=== PATIENT | female | born 1955 | race Caucasian/White ===

== ENCOUNTER 2018-01-28 12:57 | Outpatient (CLI) | payer OTHER | END 2018-01-28 12:58 | disposition home or self-care (01) | LOC: LAB 12:57 | PROVIDERS: ATTEND Internal Medicine Rheumatology | DX: M35.3 Polymyalgia rheumatica (principal) | CPT/HCPCS: 36415; 85651; 86140 ==

== ENCOUNTER 2021-04-02 08:00 | Outpatient (CLI) | payer OTHER | END 2021-04-02 23:59 | LOC: LAB.S 08:00 | PROVIDERS: ATTEND Physician Assistant | DX: U07.1 COVID-19 (principal) ==

== ENCOUNTER 2022-03-05 09:48 | Outpatient (CLI) | payer OTHER, MEDICARE ==
[2022-03-05 10:09] LABS: BASOPHILS # (AUTO) 0.1 10^3/uL (0.0-0.1); BASOPHILS % (AUTO) 1.1 %; EOSINOPHILS # (AUTO) 0.2 10^3/uL (0.0-0.7); HCT - HEMATOCRIT 38.2 % (37.0-47.0); HGB - HEMOGLOBIN 12.1 g/dL (12.0-16.0); LYMPHOCYTES # (AUTO) 2.1 10^3/uL (1.5-3.5); LYMPHOCYTES % (AUTO) 39.8 %; MEAN CORPUSCULAR HEMOGLOBIN 29.3 pg (27.0-31.0); MEAN CORPUSCULAR HGB CONC 31.7 g/dL (32.0-36.0); MEAN CORPUSCULAR VOLUME 92.5 fL (81.0-99.0); MEAN PLATELET VOLUME 9.3 fL (7.9-10.8); MONOCYTES # (AUTO) 0.3 10^3/uL (0.0-1.0); MONOCYTES % (AUTO) 5.6 %; NEUTROPHILS # (AUTO) 2.6 10^3/uL (1.5-6.6); NEUTROPHILS % (AUTO) 49.3 %; PLT - PLATELET COUNT 264 10^3/uL (130-450); RED BLOOD COUNT 4.13 10^6/uL (4.20-5.40); RED CELL DISTRIBUTION WIDTH 13.4 % (12.0-15.0); WHITE BLOOD COUNT 5.2 x10^3/uL (4.8-10.8)
[2022-03-05 10:24] LABS: ALBUMIN 4.2 g/dL (3.2-5.5); ALBUMIN/GLOBULIN RATIO 1.6 (1.0-2.2); ALKALINE PHOSPHATASE 36 IU/L (42-121); ALT ALANINE AMINOTRANSFERASE 16 IU/L (10-60); AST ASPARTATE AMINOTRANSFERASE 18 IU/L (10-42); BILIRUBIN,TOTAL 0.7 mg/dL (0.2-1.0); BUN - BLOOD UREA NITROGEN 15 mg/dL (6-20); CALCIUM 9.2 mg/dL (8.5-10.3); CARBON DIOXIDE - CO2 27 mmol/L (21-32); CHLORIDE 102 mmol/L (101-111); CHOL/HDL RATIO 3.5 (<4.4); CHOLESTEROL 247 mg/dL; CREATININE 0.8 mg/dL (0.4-1.0); GFR - MDRD 72 (>89); GLUCOSE 102 mg/dL (70-100); HDL CHOLESTEROL 71 mg/dL; LDL CHOLESTEROL,CALCULATED 160 mg/dL; LDL/HDL RATIO 2.3 (<4.4); SODIUM 138 mmol/L (135-145); TOTAL PROTEIN 6.8 g/dL (6.7-8.2); TRIGLYCERIDES 80 mg/dL; VLDL CHOLESTEROL 16 mg/dL
[2022-03-05 10:36] LABS: THYROID STIMULATING HORMONE 5.11 uIU/mL (0.34-5.60)
[2022-03-05 11:50] LABS: ESTIMATED AVERAGE GLUCOSE 120 mg/dL (70-100); HEMOGLOBIN A1c% 5.8 % (4.27-6.07)
== END 2022-03-05 09:49 | disposition home or self-care (01) ==
LOC: LAB 09:48
PROVIDERS: ATTEND Internal Medicine
DX: Z00.00 Encounter for general adult medical examination without abnormal findings (principal); E78.5 Hyperlipidemia, unspecified; R73.01 Impaired fasting glucose
CPT/HCPCS: 36415; 80053; 80061; 83036; 83721; 84443; 85025

== ENCOUNTER 2022-11-28 14:12 | Emergency (ER) | payer MEDICARE, OTHER ==
--- OUTSIDE RECORDS SUMMARY | 2022-11-28 14:45 | EXTERNAL MEDICAL SUMMARY RPT | Continuity of Care Document ---
Author Name Unknown Address [address] [place] [address] Phone Organization [facility] Address [address] [place] [address] Phone Care Team Providers Care Solderer Torch Name Role Phone Nurse, Fred [facility] Unavailable Unavailab le Medications date description facility 2022-09-04 00:00 fluocinolone acetonide oil [facility] [place] 2022-09-04 00:00 ciclopirox [facility] 2022-09-04 00:00 imiquimod [facility] 2022-09-04 00:00 imiquimod [facility] 2022-09-04 00:00 ciclopirox [facility] 2022-09-04 00:00 imiquimod [facility] 2022-09-04 00:00 fluocinolone acetonide oil [facility] 2022-09-04 00:00 ciclopirox [facility] [place] 2022-09-04 00:00 fluocinolone acetonide oil [facility] 2022-09-04 00:00 ciclopirox [facility] 2022-09-04 00:00 imiquimod [facility] 2022-09-04 00:00 fluocinolone acetonide oil [facility]
[2022-11-28] MEDS ORDERED: SODIUM CHLORIDE 0.9% 1,000 ML IV STA (15:41)
[2022-11-28] MEDS ORDERED: MECLIZINE 12.5 MG TABLET PO STA (15:41)
[2022-11-28] MEDS ORDERED: ONDANSETRON 4 MG/2 ML VIAL IVP STA (15:41)
[2022-11-28 15:56] LABS: BASOPHILS # (AUTO) 0.1 10^3/uL (0.0-0.1); EOSINOPHILS # (AUTO) 0.1 10^3/uL (0.0-0.7); HCT - HEMATOCRIT 40.6 % (37.0-47.0); HGB - HEMOGLOBIN 13.1 g/dL (12.0-16.0); MEAN CORPUSCULAR HEMOGLOBIN 29.5 pg (27.0-31.0); MEAN CORPUSCULAR HGB CONC 32.3 g/dL (32.0-36.0); MEAN CORPUSCULAR VOLUME 91.4 fL (81.0-99.0); MEAN PLATELET VOLUME 9.5 fL (7.9-10.8); MONOCYTES # (AUTO) 0.3 10^3/uL (0.0-1.0); MONOCYTES % (AUTO) 5.1 %; NEUTROPHILS # (AUTO) 3.6 10^3/uL (1.5-6.6); NEUTROPHILS % (AUTO) 58.7 %; PLT - PLATELET COUNT 290 10^3/uL (130-450); RED BLOOD COUNT 4.44 10^6/uL (4.20-5.40); RED CELL DISTRIBUTION WIDTH 13.1 % (12.0-15.0); WHITE BLOOD COUNT 6.1 x10^3/uL (4.8-10.8)
[2022-11-28 16:13] LABS: ALBUMIN 4.6 g/dL (3.2-5.5); ALBUMIN/GLOBULIN RATIO 1.7 (1.0-2.2); BILIRUBIN,TOTAL 0.7 mg/dL (0.2-1.0); CALCIUM 9.8 mg/dL (8.5-10.3); CREATININE 0.7 mg/dL (0.6-1.3); POTASSIUM 3.7 mmol/L (3.5-4.5); TOTAL PROTEIN 7.3 g/dL (6.4-8.9)
--- NOTE | 2022-11-28 17:25 | ED Physician Documentation ---
History of Present Illness - Stated complaint Stated Complaint: DIZZY/NAUSEA - Chief complaint Chief Complaint: Neuro - History obtained from History obtained from: Patient - Additonal information Additional information: Patient is a 67-year-old patient with a history of vertigo presenting for evaluation of vertigo that is been present for 4 days. She states just prior to this she had gone swimming and was shaking water out of her head vigorously. The next day she started with vertigo symptoms that appear to be worse when looking to the left. She denies any falls or head injury. She does not take a blood thinner. She has attempted the Perla maneuver at home but this has caused worsening vertigo and nausea so she is hesitant to try it again. Her symptoms have been improving. She is able to ambulate. Denies a history of hypertension, diabetes, stroke, hyperlipidemia. Review of Systems Constitutional: denies: Fever Cardiac: denies: Chest pain / pressure Respiratory: denies: Dyspnea GI: denies: Abdominal Pain : denies: Dysuria Neurologic: denies: Syncope, Headache PD PAST MEDICAL HISTORY - Present Medications Home Medications: Ambulatory Orders Medication Instructions Recorded Confirmed Meclizine HCl [Motion Sickness] 25 mg PO Q6H PRN #20 tablet 11/28/22 Ondansetron Odt [Zofran] 4 mg TL Q6H PRN #10 tablet 11/28/22 - Allergies Allergies/Adverse Reactions: Allergies Allergy/AdvReac Type Severity Reaction Status Date / Time amoxicillin AdvReac Rash Verified 11/28/22 14:28 PD ED PE NORMAL - General General: Alert and oriented X 3, No acute distress, Well developed/nourished - HEENT HEENT: Atraumatic, PERRL, EOMI, Moist mucous membranes, Pharynx benign - Neck Neck: Supple, no meningeal sign - Cardiac Cardiac: RRR, Strong equal pulses - Respiratory Respiratory: No respiratory distress, Clear bilaterally - Abdomen Abdomen: Soft, Non tender - Derm Derm: Warm and dry - Neuro Neuro: Alert and oriented X 3, hemmer chainstitch 2-12 intact, No motor deficit, No sensory deficit, Normal speech, Other (Normal finger to nose b/l; normal gait; +Moody Hallpike to Left) Results - Vitals Vitals: Vital Signs - 24 hr 11/28/22 11/28/22 11/28/22 14:22 15:35 16:19 Temperature 37.0 C Heart Rate 62 48 L Respiratory 16 15 Rate Blood Pressure 180/84 H 144/82 H O2 Saturation 100 97 11/28/22 17:36 Temperature Heart Rate 52 L Respiratory 15 Rate Blood Pressure 148/79 H O2 Saturation 99 Oxygen O2 Source Room air - Labs Labs: Laboratory Tests 11/28/22 11/28/22 15:53 15:53 WBC 6.1 RBC 4.44 Hgb 13.1 Hct 40.6 MCV 91.4 MCH 29.5 MCHC 32.3 RDW 13.1 Plt Count 290 MPV 9.5 Neut # (Auto) 3.6 Lymph # (Auto) 2.0 [place] # (Auto) 0.3 Eos # (Auto) 0.1 Baso # (Auto) 0.1 Absolute Nucleated RBC 0.00 Nucleated RBC % 0.0 Sodium 138 Potassium 3.7 Chloride 103 Carbon Dioxide 28 Anion Gap 7.0 BUN 13 Creatinine 0.7 Estimated GFR (MDRD) 83 L Glucose 104 Calcium 9.8 Total Bilirubin 0.7 AST 13 ALT 10 Alkaline Phosphatase 40 L Total Protein 7.3 Albumin 4.6 Globulin 2.7 Albumin/Globulin Ratio 1.7 PD Medical Decision Making - ED course Complexity details: reviewed results, re-evaluated patient, d/w patient ED course: Patient is a 67-year-old female with a history of vertigo presenting for evaluation of an episode of vertigo lasting 4 days today. She reports that her prior episode was brief and did not require other intervention. She has tried the Perla maneuver with some improvement but some symptoms have persisted. She has a positive Moody-Hallpike to the left. No other findings to suggest central cause. EKG reviewed which shows sinus bradycardia which patient appears to be symptomatic from. CBC, chemistries obtained and reviewed without significant findings. She is feeling better after meclizine, Zofran and IV fluids. Discussed continued supportive care as well as need for close follow-up. She is advised on concerning symptoms to return for. Departure - Departure Disposition: 01 Home, Self Care Clinical Impression: Peripheral vertigo Condition: Stable Instructions: ED Vertigo Unspecified Prescriptions: Meclizine HCl [Motion Sickness] 25 mg PO Q6H PRN #20 tablet PRN Reason: Dizziness Ondansetron Odt [Zofran] 4 mg TL Q6H PRN #10 tablet PRN Reason: Nausea / Vomiting Comments: You were evaluated for vertigo which I believe is related to an imbalance in the inner ear. I have sent medications to [facility] in [place] to help with your symptoms. You can continue with Perla maneuvers 3 times a day as needed. I would call your primary care provider on Wednesday for close follow-up. Return to the emergency department with any worsening symptoms. Forms: PCP List Discharge Date/Time: 11/28/22 17:37
[2022-11-28 17:44] VITALS: BP 148/79; O2SAT 99
== END 2022-11-28 17:37 | disposition home or self-care (01) ==
LOC: ED 14:12
DX: H81.399 Other peripheral vertigo, unspecified ear (principal)
CPT/HCPCS: 36415; 80053; 85025; 93005; 96374; 99283; 99284; A9270

== ENCOUNTER 2023-03-17 09:20 | Outpatient (CLI) | payer MEDICARE, OTHER ==
--- NOTE | 2023-03-17 17:40 | XRAY Report ---
PROCEDURE: Hand 2 View BILAT INDICATIONS: DEGENERATIVE JOINT DISEASE OF BILATERAL HANDS TECHNIQUE: 3 views of the hand(s) acquired. COMPARISON: None. FINDINGS: Bones: No fractures or dislocations. No suspicious bony lesions. Minimal radiocarpal and interpha langeal joint space narrowing. No significant juxta articular erosions. Soft tissues: No suspicious soft tissue calcifications or masses. IMPRESSION: No acute bony abnormality. Minimal radiocarpal and interphalangeal joint space narrowing. Reviewed by: Wendy Hernandez MD on 03/17/2023 5:38 PM PST Approved by: Wendy Hernandez MD on 03/17/2023 5:38 PM PST Station ID: [id number]
== END 2023-03-17 09:21 | disposition home or self-care (01) ==
LOC: DI.S 09:20
PROVIDERS: ATTEND Internal Medicine
DX: M19.042 Primary osteoarthritis, left hand (principal); M19.041 Primary osteoarthritis, right hand; M19.90 Unspecified osteoarthritis, unspecified site